=== PATIENT | male | born 1995 | race Caucasian/White ===

== ENCOUNTER 2018-08-16 12:05 | Emergency (ER) | payer SELFPAY ==
[2018-08-16] MEDS: DIPHTH/TET/ACEL PERTUSS (ADULT) 0.5 ML VIAL IM* (12:37)
[2018-08-16] MEDS: HYDROCODONE/APAP (5/325) TAB PO (12:45)
== END 2018-08-16 14:18 | disposition home or self-care (01) ==
LOC: FTE 12:05
DX: S61.233A Puncture wound without foreign body of left middle finger without damage to nail, initial encounter (principal); W45.0XXA Nail entering through skin, initial encounter; Y92.009 Unspecified place in unspecified non-institutional (private) residence as the place of occurrence of the external cause; Z23 Encounter for immunization
CPT/HCPCS: 73140; 90471; 90715; 99283-25